=== PATIENT | male | born 1940 | race Caucasian/White ===

== ENCOUNTER 2016-10-21 21:17 | Inpatient (IN) | payer MEDICARE, OTHER ==
[2016-10-21] MEDS ORDERED: IPRATROPIUM/ALBUTEROL 0.5-2.5 MG/3 ML AMPUL NEB ONE (21:36)
[2016-10-21] MEDS ORDERED: METHYLPREDNISOLONE INJ 125 MG/2 ML SDV IV ONE (21:36)
--- NOTE | 2016-10-21 21:39 | ER Document Report ---
ED General - General Stated Complaint: RESPIRATORY DISTRESS Cannot obtain history due to: Unstable vital signs Notes: Patient is a 76-year-old male with complex medical history including systolic CHF with an ejection fraction below 30% status post placement of an AICD and pacemaker, chronic kidney disease, COPD with a 4 L nasal cannula oxygen requirement, and a history of recurrent pleural effusions who presents with hypoxemia and respiratory distress. History is limited secondary to patient's distress level. However, the daughter and EMS provide a history of patient contacting the daughter stating he felt increasingly short of breath. When the daughter arrived patient was tachypneic and she checked a pulse oximeter and noted it to be 50%. She noticed that his oxygen tubing was kinked but even unkinking the tubing only increases oxygen saturation to 73%. On EMS arrival, patient was in severe respiratory distress with associated wheezing and poor air movement bilaterally. He was placed on CPAP with moderate improvement of his symptoms and transferred to the emergency department. Daughter does note that patient fell 2 days ago and hit his head but has not been acting any differently has not had any focal weakness, numbness or vomiting since that time. He is currently anticoagulated on Coumadin. - Related Data Allergies/Adverse Reactions: acetaminophen [From Percocet] Allergy (Severe, Verified 10/22/16 00:35) Hallucinations oxycodone HCl [From Percocet] Allergy (Severe, Verified 10/22/16 00:35) Hallucinations Penicillins Allergy (Severe, Verified 10/22/16 00:35) Sulfa (Sulfonamide Antibiotics) Allergy (Verified 10/22/16 00:35) Home Medications: Current Home Medications Aclidinium [place] [Tudorza Pressair for Inh] 1 puff IH PRN PRN 10/22/16 [ History] Bisoprolol Fumarate [Bisoprolol Fumarate] 0.5 tab PO DAILY 10/22/16 [History] Bumetanide [Bumetanide] 1 tab PO BID 10/22/16 [History] Febuxostat [Uloric 40 mg Tablet] 1 tab PO QAM 10/22/16 [History] Lubiprostone [Amitiza 24 Mcg Capsule] 1 tab PO BID 10/22/16 [History] Mometasone/Formoterol [Dulera 100 Mcg/5 Mcg Inhaler] 1 - 2 puff IH PRN PRN 10/22 [History] Ropinirole HCl [Ropinirole HCl] 1 tab PO QHS 10/22/16 [History] Sitagliptin Phosphate [Januvia] 50 mg PO DAILY 10/22/16 [History] Warfarin Sodium [Warfarin Sodium] 1 tab PO QPM 10/22/16 [History] Warfarin Sodium [Warfarin Sodium] 1 tab PO QPM 10/22/16 [History] Past Medical History - General Information source: Relative - Social History Smoking Status: Former Smoker Frequency of alcohol use: None Drug Abuse: None Lives with: Alone Family History: Reviewed & Not Pertinent - Past Medical History Cardiac Medical History: Reports: Hx Congestive Heart Failure, Hx Heart Attack - 1990,2008, Hx Hypertension - LISINOPRIL ATENOLOL Pulmonary Medical History: Denies: Hx Asthma, Hx Bronchitis Neurological Medical History: Denies: Hx Cerebrovascular Accident, Hx Seizures GI Medical History: Denies: Hx Hepatitis, Hx Hiatal Hernia, Hx Ulcer Musculoskeltal Medical History: Reports Hx Arthritis Infectious Medical History: Denies: Hx Hepatitis Past Surgical History: Reports: Hx Open Heart Surgery - CABG X 2, Hx Pacemaker - MEDTRONIC [id number], left chest Review of Systems - Review of Systems Notes: Constitutional: Negative for fever. HENT: Negative for sore throat. Eyes: Negative for visual changes. Cardiovascular: Negative for chest pain. Respiratory: Positive for shortness of breath. Gastrointestinal: Negative for abdominal pain, vomiting or diarrhea. Genitourinary: Negative for dysuria. Musculoskeletal: Negative for back pain. Skin: Negative for rash. Neurological: Negative for headaches, weakness or numbness. 10 point ROS negative except as marked above and in HPI. Physical Exam - Vital signs Vitals: Temp Resp Pulse Ox 98.4 F 30 H 95 10/21/16 21:20 10/21/16 21:20 10/21/16 21:20 Interpretation: Hypoxic, Tachypneic Notes: PHYSICAL EXAMINATION: GENERAL: Frail, elderly-appearing male in severe respiratory distress HEAD: Atraumatic, normocephalic. EYES: Pupils equal round and reactive to light, extraocular movements intact, sclera anicteric, conjunctiva are normal. ENT: nares patent, oropharynx clear without exudates. Dry mucous membranes. NECK: Normal range of motion, supple without lymphadenopathy LUNGS: Tight air movement in all lung aparicio. Diminished breath sounds at the left base. Expiratory wheezing in all lung aparicio. Moderate to severe respiratory distress tachypnea with respiratory rate of 42. HEART: Regular rate and rhythm without murmurs ABDOMEN: Soft, nontender, normoactive bowel sounds. No guarding, no rebound. No masses appreciated. EXTREMITIES: Normal range of motion, no pitting or edema. No cyanosis. 1+ pitting edema in the bilateral lower extremities that is equal and symmetric NEUROLOGICAL: No focal neurological deficits. Moves all extremities spontaneously and on command. PSYCH: Normal mood, normal affect. SKIN: Warm, Dry, normal turgor, no rashes or lesions noted. Course - Re-evaluation Re-evalutation: 10/21/16 21:37 Patient arrives in severe respiratory distress, tachypneic into the low 40s, poor air movement bilaterally particular diminished at the left lobe base which family states his baseline apparently. Patient did have significant improvement of his distress after being placed on BiPAP. His presentation is most consistent with an acute COPD exacerbation as opposed to a CHF exacerbation as he does not have any significant pedal edema and I do not appreciate any significant rales on exam. He was started on continuous in-line DuoNeb's. IV Solu-Medrol and magnesium were administered. A stat portal chest x-ray will be obtained. Patient also apparently had a fall 2 days ago and is on Coumadin so CT the head will be obtained will be does not have any symptoms at this time of a clinically significant brain injury. Patient will require frequent reassessments as he is critically ill this time secondary to his respiratory status. 10/21/16 2200 On reassessment patient's work of breathing is much improved and air movement likewise is substantially improved. Portable chest x-ray shows likely large bleb at the right lower lung base. There is a left pleural effusion which is consistent with clinical exam and patient does have a chronic history of this. Patient states he's also been told that he has "something that's always been at my right lower lung". Will continue on BiPAP at this time although patient is much clinically improved relative to presentation 10/21/16 23:35 Patient has now been transitioned to 6 L by nasal cannula and maintained an oxygen saturation between 90-93%. This is 2 L more than he normally requires only continues without respiratory distress. Review his laboratories show some chronic kidney disease. ProBNP is elevated although do not have a comparison to determine his baseline. Troponin is negative. CBC of seizures and mild anemia and leukocytosis. I discussed this case with the hospitalist Dr. Stratton who has accepted for admission at this time. - Vital Signs Vital signs: Temp Pulse Resp BP Pulse Ox 98.2 F 70 23 H 115/71 93 10/22/16 01:50 10/22/16 01:50 10/22/16 01:50 10/22/16 01:50 10/22/16 01:50 - Laboratory Result Diagrams: 10/21/16 21:46 10/21/16 21:46 Laboratory results interpreted by me: 10/21/16 10/21/16 10/21/16 21:46 21:46 21:46 WBC 12.6 H RBC 4.26 L Hgb 12.6 L RDW 16.1 H Seg Neuts % (Manual) 87 H Band Neutrophils % 1 L Lymphocytes % (Manual) 7 L Abs Neuts (Manual) 11.1 H Abs Basophils (Manual) 0.3 H PT ABG pO2 BUN 28 H Creatinine 1.47 H Est GFR ( Amer) 56 L Est GFR (Non-Af Amer) 46 L Glucose 123 H Total Bilirubin 1.5 H Creatine Kinase 52 L NT-Pro-B Natriuret Pep 4730 H 10/21/16 10/22/16 21:46 00:05 WBC RBC Hgb RDW Seg Neuts % (Manual) Band Neutrophils % Lymphocytes % (Manual) Abs Neuts (Manual) Abs Basophils (Manual) PT 22.4 H ABG pO2 74.9 L BUN Creatinine Est GFR ( Amer) Est GFR (Non-Af Amer) Glucose Total Bilirubin Creatine Kinase NT-Pro-B Natriuret Pep - Diagnostic Test Radiology reviewed: Image reviewed, Reports reviewed Radiology results interpreted by me: 10/21/16 23:42 Chest x-ray: Left pleural effusion and likely large air bleb at the right lung base - EKG Interpretation by Me Additional EKG results interpreted by me: 10/22/16 02:13 Left bundle branch block. Rate 64. QTC is 446. Sinus rhythm. No scarbosa criteria Critical Care Note - Critical Care Note Total time excluding time spent on procedures (mins): 45 Comments: Critical care time spent obtaining history from patient or surrogate, discussions with consultants, development of treatment plan with patient or surrogate, evaluation of patient's response to treatment, examination of patient , ordering and performing treatments and interventions, ordering and review of laboratory studies, re-evaluation of patient's condition, ordering and review of radiographic studies and review of old charts Discharge - Discharge Clinical Impression: Respiratory distress, COPD exacerbation Chronic kidney disease Qualifiers: Chronic kidney disease stage: unspecified stage Qualified Code(s): N18.9 - Chronic kidney disease, unspecified Condition: Fair Disposition: ADMITTED INPATIENT Admitting Provider: Pablo Frankwell Unit Admitted: [facility]
--- NOTE | 2016-10-21 21:40 | EKG REPORT ---
SEVERITY:- ABNORMAL ECG - PROBABLE SINUS RHYTHM LEFT BUNDLE BRANCH BLOCK : Confirmed by: Kevin Eldridge 21-Oct-2016 21:39:19
[2016-10-21] MEDS: MAGNESIUM SULFATE/D5W 100 ML IV SCH ×2 (21:54→22:54)
[2016-10-21 22:05] LABS: HEMOGLOBIN 12.6 g/dL (13.5-17.0); HGB HCT DIFFERENCE -1.2; MEAN CORPUSCULAR HEMOGLOBIN 29.6 pg (27.0-33.4); MEAN CORPUSCULAR HGB CONC 32.3 g/dL (32.0-36.0); MEAN CORPUSCULAR VOLUME 92 fl (80-97); RED BLOOD COUNT 4.26 10^6/uL (4.35-5.55); RED CELL DISTRIBUTION WIDTH 16.1 % (11.5-14.0); WHITE BLOOD COUNT 12.6 10^3/uL (4.0-10.5)
[2016-10-21 22:11] LABS: PROTHROMBIN TIME 22.4 SEC (11.4-15.4)
[2016-10-21 22:12] LABS: PARTIAL THROMBOPLASTIN TIME 34.5 SEC (23.5-35.8)
[2016-10-21 22:25] LABS: ALANINE AMINOTRANSFERASE 30 U/L (21-72); ALBUMIN 3.9 g/dL (3.5-5.0); ALKALINE PHOSPHATASE 84 U/L (38-126); ANION GAP 11 (5-19); ASPARTATE AMINO TRANSFERASE 20 U/L (17-59); BILIRUBIN,TOTAL 1.5 mg/dL (0.2-1.3); BLOOD UREA NITROGEN 28 mg/dL (7-20); CALCIUM 9.6 mg/dL (8.4-10.2); CARBON DIOXIDE 27 mmol/L (22-30); CHLORIDE 102 mmol/L (98-107); CREATINE KINASE 52 U/L (55-170); CREATININE RESULT 1.47 mg/dL (0.52-1.25); GLUCOSE 123 mg/dL (75-110); POTASSIUM 4.5 mmol/L (3.6-5.0); SODIUM 140.1 mmol/L (137-145); TOTAL PROTEIN 7.2 g/dL (6.3-8.2)
[2016-10-21 22:30] LABS: ANISOCYTOSIS 1+; BAND NEUTROPHILS % (MANUAL) 1 % (3-5); BASOPHILS % (MANUAL) 2 % (0-2); EOSINOPHILS % (MANUAL) 0 % (0-6); LYMPHOCYTES % (MANUAL) 7 % (13-45); OVALOCYTES 1+; PLATELET CLUMPS PRESENT; POIKILOCYTOSIS SLIGHT; POLYCHROMASIA SLIGHT; TOTAL CELLS COUNTED 100
[2016-10-21 22:37] LABS: CREATINE KINASE MB 0.9 ng/mL (<4.55); TROPONIN I 0.015 ng/mL
[2016-10-22 00:14] LABS: ARTERIAL BLOOD BASE EXCESS 0.4 mmol/L; ARTERIAL BLOOD O2 SATURATION 95.4 % (94-98)
[2016-10-22] MEDS ORDERED: INFLUENZA ADLT QUAD (36MOS+) 2016-17 VAC 0.5 ML SYR IM PRN (03:45)
[2016-10-22] MEDS ORDERED: GUAIFENESIN SYRP 200 MG/10 ML UDC PO PRN (04:25)
[2016-10-22] MEDS ORDERED: ALBUTEROL SULFATE 0.083% NEB 2.5 MG/3 ML AMPUL NEB PRN (04:25)
[2016-10-22] MEDS ORDERED: ACETAMINOPHEN 325 MG TABLET PO PRN (04:25)
[2016-10-22] MEDS ORDERED: DEXTROSE 40% GEL 15 GM TUBE PO PRN ×2 (04:27)
[2016-10-22] MEDS ORDERED: GLUCAGON,HUMAN RECOMB 1 MG INJ IM PRN (04:27)
[2016-10-22] MEDS ORDERED: DEXTROSE 50%-WATER 25 GM/50 ML DISP.SYRIN IV PRN ×2 (04:27)
[2016-10-22] MEDS ORDERED: PHARMACY COMMUNICATION ORDER MC NR (04:30)
--- NOTE | 2016-10-22 04:47 | PDOC H&P ---
History of Present Illness Admission Date/PCP: 10/22/16 00:16 Pennie Gamez, [place], [place] Patient complains of: DIFFICULTY BREATHING History of Present Illness: JUANY BOWLES is a 76 year old obese male with underlying home O2 dependent COPD, along with coronary artery disease, having suffered [place] 2, congestive heart failure, uncertain if systolic and/or diastolic, history of DVT but no pulmonary embolus, chronic anticoagulation with Coumadin, hyperlipidemia , hypertension, esophageal reflux disease, arthritis, and chronic kidney disease who presents to the emergency room for evaluation of above complaint. Chronic shortness of breath, but particularly noticeable over the past week, in particular with much of any exertion. Questionable chills, but no jacqueline fever. No nausea vomiting, chest pain, diarrhea or dysuria. Was noted to be hypoxic at home even on supplemental oxygen, 73% upon EMS arrival. noted to be in severe respiratory distress with wheezing and poor air movement. Placed on CPAP. Transitioned to BiPAP in the emergency room. Has improved significantly with treatment so far, is currently tolerating nasal cannula oxygen only. Fell and struck his head 2 days ago. However, no change in his mentation, or focal weakness numbness or vomiting. Patient has been discussed with emergency room physician who evaluated the patient. . Laboratory results are listed in [facility] and are reviewed. X-ray summary results are listed below, with full report(s) reviewed. . EKG reviewed. No old EKG available for comparison. Social history/personal habits: . However, live separately from his . Retired. Has children. No tobacco use for 4 years. No alcohol or illicit drug use. Allergies/adverse reactions are listed in [facility] and are reviewed. Home medications Home medications initially autopopulated into [facility] may not accurately reflect patient's true medications, dosages, and/or frequencies. REVIEW OF SYSTEMS: Constitutional: See history and present illness. Eyes: Wears glasses. ENT: No swallowing problems or complaints. Partial hearing loss. Pulmonary: See history and present illness. Cardiovascular: No current complaints, including chest pain. Gastrointestinal: No current complaints, including nausea or vomiting. Skin: No current complaints, including rashes. Hematologic: Easy bruising. Neurologic: Chronic numbness and tingling of his feet. Musculoskeletal: Joint pain from arthritis. Psychiatric: No current complaints, including anxiety or depression. Endocrine: No current complaints, including polyuria. Genitourinary: No current complaints, including dysuria. PHYSICAL EXAMINATION: 6 feet tall. 119.2 kg. BMI 35.6 kg/m.Temperature 97.9. Blood pressure 115/ 61. Respirations are 20 and unlabored. 96% saturation on 5 L oxygen per nasal cannula. Obese otherwise well-developed elderly male appearing perhaps a bit younger than his stated age. Pleasant awake alert and cooperative. No obvious distress other than perhaps mildly anxious. Skin is warm and dry. No grossly obvious evidence of rash in areas of skin examined. No subcutaneous nodules palpated. ENT: Hearing grossly normal to normal conversation. Tongue midline on protrusion pink and slightly tacky. Eyes: No scleral icterus. Pupils equal and reactive to light at 4 mm. [place] conjunctivae. Neck is supple and nontender to gentle active range of motion and palpation. Midline trachea. No palpable thyroid nodule mass enlargement or tenderness. Lymphatic: No palpable cervical or clavicular nodes. Neck and lymphatic exams limited by patient body habitus. Psychiatric: Reasonable insight into acute and chronic medical issues. Oriented to time location and why here. Lungs: Auscultation reveals clear and equal breath sounds bilaterally. No use of accessory respiratory muscles. Cardiovascular: Heart regular rate and rhythm, without gallop murmur or rub. No carotid or abdominal aortic bruits. No ankle or pedal edema. Faintly palpable dorsalis pedis pulses. Abdomen: soft, obese, nontender with positive bowel sounds. Unable to adequately evaluate abdomen for masses or organomegaly due to body habitus. Extremities: Feet are warm and dry. No calf tenderness to compression. No grossly obvious visual evidence of calf swelling. Gentle manipulation of lower extremities fails to reveal any obvious evidence of injury or instability to knees hips or ankles. Neurologic: Moves upper extremities grossly normally. Patellar reflexes absent. Absent Babinski. Light touch is intact at feet. Dorsiflexion and plantarflexion of feet 5 / 5 and symmetric. Past Medical History Cardiac Medical History: Reports: Congestive Heart Failure, DVT, Myocardial Infarction - 1990,2007, Hyperlipidema, Hypertension Denies: Pulmonary Embolism Pulmonary Medical History: Reports: Chronic Obstructive Pulmonary Disease (COPD) Denies: Asthma, Bronchitis, Sleep Apnea EENT Medical History: Reports: Eyes - Glasses, Ears - Partial hearing loss Denies: Throat Neurological Medical History: Denies: Hemorrhagic CVA, Ischemic CVA, Seizures Endocrine Medical History: Reports: Diabetes Mellitus Type 2 Denies: Diabetes Mellitus Type 1, Hyperthyroidism, Hypothyroidism Renal/ Medical History: Reports: Chronic Kidney Disease Malignancy Medical History: Reports: Skin Cancer GI Medical History: Reports: Gastroesophageal Reflux Disease Denies: Cirrhosis, Hepatitis, Hiatal Hernia, Peptic Ulcer Disease Musculoskeltal Medical History: Reports: Arthritis Skin Medical History: Denies: Eczema, Psoriasis Psychiatric Medical History: Denies: Alcohol Dependency, Depression, General Anxiety Disorder, Substance Abuse, Tobacco Dependency Hematology: Reports: Other - Easy bruising Denies: Anemia, Sickle Cell Disease Infectious Medical History: Denies: Hepatitis B, Hepatitis C Past Surgical History Past Surgical History: Reports: Coronary Artery Bypass Graft, Pacemaker - AICD MEDTRONIC [id number], left chest Social History Information Source: Patient, Emergency Med Personnel, [facility] Records Lives with: Alone Smoking Status: Former Smoker Cigarettes Packs Per Day: 1 Number of Years Smokin Last Time Smoked: 2012 Frequency of Alcohol Use: None Hx Recreational Drug Use: No Drugs: None Hx Prescription Drug Abuse: No - Advance Directive Resuscitation Status: Full Code Surrogate healthcare decision maker:: His 2 daughters Family History Family History: Reviewed & Not Pertinent Parental Family History Reviewed: Yes Children Family History Reviewed: Yes Sibling(s) Family History Reviewed.: Yes Medication/Allergy Home Medications: RX: Aclidinium [place] [Tudorza Pressair] 400 mcg IH BID 10/22/16 RX: Aspirin [Aspirin EC] 81 mg PO DAILY 10/22/16 RX: Atorvastatin Calcium [Lipitor 40 mg Tablet] 40 mg PO QHS 10/22/16 RX: Bumetanide [Bumex 1 mg Tablet] 1 tab PO BID 10/22/16 RX: Colchicine [Colcrys 0.6 mg Tablet] 0.6 mg PO DAILY 10/22/16 RX: Febuxostat [Uloric 40 mg Tablet] 40 mg PO DAILY 10/22/16 RX: Ipratropium/Albuterol Sulfate [Duoneb 3 ml Ampul] 3 ml NEB QIDP PRN RX: Lisinopril [Prinivil 2.5 mg Tablet] 2.5 mg PO DAILY 10/22/16 RX: Lubiprostone [Amitiza 24 Mcg Capsule] 24 mcg PO BID 10/22/16 RX: Metolazone [Zaroxolyn 2.5 mg Tablet] 2.5 mg PO DAILYP PRN 10/22/16 RX: Metoprolol Tartrate [Lopressor 25 mg Tablet] 25 mg PO BID 10/22/16 RX: Nitroglycerin [Nitrostat] 0.4 mg SL Q5MP PRN 10/22/16 RX: Omeprazole 20 mg PO DAILY 10/22/16 RX: Potassium Chloride 20 meq PO DAILY 10/22/16 RX: Ropinirole HCl 1 mg PO QHS 10/22/16 RX: Sitagliptin Phosphate [Januvia 50 mg Tablet] 50 mg PO DAILY 10/22/16 RX: Spironolactone [Aldactone 25 mg Tablet] 12.5 mg PO DAILY 10/22/16 RX: Warfarin Sodium [Coumadin 1 mg Tablet] 1 mg PO DAILY 10/22/16 RX: Warfarin Sodium [Coumadin] 6 mg PO DAILY 10/22/16 Aclidinium [place] [Tudorza Pressair for Inh] 1 puff IH .PRN PRN 10/25/16 Bisoprolol Fumarate [Zebeta] 5 mg PO DAILY #10 tablet 10/25/16 RX: Acetaminophen [Tylenol 325 mg Tablet] 650 mg PO Q4HP PRN tablet 10/25/16 RX: Aspirin [Ecotrin 81 mg EC Tablet] 81 mg PO DAILY tabec 10/25/16 RX: Atorvastatin Calcium [Lipitor 40 mg Tablet] 40 mg PO QHS tablet 10/25/16 RX: Bumetanide [Bumex 1 mg Tablet] 1 mg PO BID tablet 10/25/16 RX: Febuxostat [Uloric 40 mg Tablet] 40 mg PO QAM tablet 10/25/16 RX: Flu Vacc [id number] 36Mos Up/Pf [Fluzone Adlt Quad [id number] Vac 0.5 ml Syr] 0.5 ml IM .AT DISCHARGE PRN disp.syrin 10/25/16 RX: Levofloxacin [Levaquin 750 mg Tablet] 750 mg PO DAILY #5 tablet 10/25/16 RX: Lubiprostone [Amitiza 24 Mcg Capsule] 24 mcg PO BID capsule 10/25/16 RX: Prednisone [Deltasone 20 mg Tablet] 20 mg PO ASDIR PRN #6 tablet 10/25/16 RX: Sitagliptin Phosphate [Januvia 50 mg Tablet] 50 mg PO DAILY tablet RX: Spironolactone [Aldactone 25 mg Tablet] 25 mg PO DAILY tablet 10/25/16 RX: Warfarin Sodium [Coumadin 3 mg Tablet] 6 mg PO QHS tablet 10/25/16 Allergies/Adverse Reactions: oxycodone HCl [From Percocet] Allergy (Severe, Verified 10/22/16 00:35) Hallucinations Penicillins Allergy (Severe, Verified 10/22/16 00:35) Sulfa (Sulfonamide Antibiotics) Allergy (Verified 10/22/16 00:35) Physical Exam Vital Signs: Temp Pulse Resp BP Pulse Ox 97.9 F 67 20 115/61 96 10/22/16 03:03 10/22/16 03:03 10/22/16 03:03 10/22/16 03:03 10/22/16 03:03 Intake & Output 10/21/16 10/22/16 10/23/16 00:59 00:59 00:59 Weight 119.2 kg Results Impressions: Chest X-Ray 10/21/16 21:18 IMPRESSION: CARDIOMEGALY WITH MODERATE LEFT PLEURAL EFFUSION. LUCENCY IN THE RIGHT LUNG BASE COULD BE DUE TO A LOCULATED PNEUMOTHORAX OR A LARGE BLEB. Head CT 10/21/16 21:35 IMPRESSION: NORMAL BRAIN CT WITHOUT CONTRAST. Assessment & Plan - Diagnosis (1) CKD (chronic kidney disease), stage III Is this a current diagnosis for this admission?: Yes (2) Diabetes mellitus type 2 in obese Is this a current diagnosis for this admission?: YesPlan: Cardiac diabetic prerenal diet. Accu-Cheks with appropriate sliding scale coverage. Resume home medications as appropriate once these have been determined and reviewed. (3) COPD exacerbation Is this a current diagnosis for this admission?: YesPlan: Patient will be admitted under COPD exacerbation protocol. Incentive spirometry twice a day. Scheduled DuoNeb's. PRN albuterol nebs daily prednisone. Prevacid for gastritis prophylaxis. Antibiotics will consist of intravenous Levaquin; pharmacy to assist with dosing.. I strongly encouraged patient to notify staff should patient feel that respiratory status is worsening. Patient is a full code. I have strongly encouraged patient not to get out of bed without notifying staff , , to avoid a fall with injury. Knee high SCDs for DVT prophylaxis; with patient on systemic anticoagulation, no need for Lovenox or heparin at this point in time. Impression and plans were discussed with patient, who concurs. Time spent in evaluation and management of patient: 62 minutes. (4) LBBB (left bundle branch block) Is this a current diagnosis for this admission?: YesPlan: No old EKG available for comparison. No clinical evidence of acute coronary syndrome; however, will repeat troponin.. (5) Abnormal chest xray Is this a current diagnosis for this admission?: YesPlan: Patient states he's been told there's "something" at his right lower lung for some time now. Uncertain about the left lung. Will obtain decubitus chest x- ray to see if there is any layering out of the left pleural effusion. - Inpatient Certification Based on my medical assessment, after consideration of the patient's comorbidities, presenting symptoms, or acuity I expect that the services needed warrant INPATIENT care.: Yes I certify that my determination is in accordance with my understanding of Medicare's requirements for reasonable and necessary INPATIENT services [42 CFR 412.3e].: Yes Medical Necessity: Significant Comorbidiites Make Outpatient Treatment Too Risky , Need Close Monitoring Due to Risk of Patient Decompensation, Need For Continuous Telemetry Monitoring, Need for Nebulizer Therapy and Monitoring of Response, Need for IV Antibiotics, Risk of Complication if Not Cared For in Hospital, Risk of Diagnosis Which Will Require Inpatient Eval/Care/Monitoring Post Hospital Care: D/C or Transfer Summary
[2016-10-22] MEDS ORDERED: LEVOFLOXACIN 750 MG/D5W RTU 750 MG/150 ML RTUPB IV ONE (05:00)
[2016-10-22 05:24] LABS: ANION GAP 11 (5-19); BLOOD UREA NITROGEN 30 mg/dL (7-20); CARBON DIOXIDE 23 mmol/L (22-30); CHLORIDE 103 mmol/L (98-107); CREATININE RESULT 1.52 mg/dL (0.52-1.25); GLUCOSE 280 mg/dL (75-110); POTASSIUM 3.6 mmol/L (3.6-5.0); SODIUM 136.9 mmol/L (137-145)
[2016-10-22 05:31] LABS: HEMATOCRIT 35.1 % (37.9-51.0); HEMOGLOBIN 11.7 g/dL (13.5-17.0); MEAN CORPUSCULAR HEMOGLOBIN 30.4 pg (27.0-33.4); MEAN CORPUSCULAR HGB CONC 33.3 g/dL (32.0-36.0); MEAN CORPUSCULAR VOLUME 91 fl (80-97); RED BLOOD COUNT 3.85 10^6/uL (4.35-5.55); RED CELL DISTRIBUTION WIDTH 15.8 % (11.5-14.0); WHITE BLOOD COUNT 9.1 10^3/uL (4.0-10.5)
[2016-10-22 05:56] LABS: BAND NEUTROPHILS % (MANUAL) 1 % (3-5); BASOPHILS % (MANUAL) 0 % (0-2); EOSINOPHILS % (MANUAL) 0 % (0-6); LYMPHOCYTES % (MANUAL) 3 % (13-45); TOTAL CELLS COUNTED 100
[2016-10-22 05:58] LABS: TOXIC GRANULATION SLIGHT
[2016-10-22 05:59] LABS: ANISOCYTOSIS SLIGHT; BURR CELLS SLIGHT; OVALOCYTES SLIGHT; POIKILOCYTOSIS SLIGHT; SCHISTOCYTES SLIGHT
[2016-10-22] MEDS ORDERED: ACLIDINIUM BROMIDE IH PRN (08:03)
[2016-10-22] MEDS: IPRATROPIUM/ALBUTEROL 0.5-2.5 MG/3 ML AMPUL NEB SCH ×3 (08:09→19:50)
[2016-10-22] MEDS ORDERED: SPIRONOLACTONE PO SCH (10:00)
[2016-10-22] MEDS ORDERED: BISOPROLOL FUMARATE PO SCH (10:00)
[2016-10-22] MEDS: ATENOLOL 50 MG TABLET PO SCH (10:09)
[2016-10-22] MEDS: SITAGLIPTIN PHOSPHATE 50 MG TABLET PO SCH (10:09)
[2016-10-22] MEDS: SPIRONOLACTONE 25 MG TABLET PO SCH (10:10)
[2016-10-22] MEDS: PREDNISONE 20 MG TABLET PO SCH (10:10)
[2016-10-22] MEDS: ASPIRIN 81 MG TABLET, ENT COATED PO SCH (10:10)
[2016-10-22] MEDS: LUBIPROSTONE 24 MCG CAPSULE PO SCH ×2 (10:12→18:39)
[2016-10-22] MEDS: BUMETANIDE 1 MG TABLET PO SCH ×2 (10:12→18:39)
--- NOTE | 2016-10-22 11:45 | PDOC PROGRESS REPORT ---
Subjective Progress Note for:: 10/22/16 Subjective:: Patient is seen on morning rounds, he is resting comfortably on the side of his bed. He denies any significant shortness breath, dyspnea, or chest pain. He denies any headaches, dizziness or lightheadedness. Denies nausea, vomiting or diarrhea. He states his breathing has improved from yesterday. He denies feeling ill prior to yesterday. Denies any cough or fever. Physical Exam Vital Signs: Temp Pulse Resp BP Pulse Ox 97.4 F 78 16 106/48 L 95 10/22/16 07:16 10/22/16 08:14 10/22/16 08:14 10/22/16 07:16 10/22/16 08:14 Intake & Output 10/21/16 10/22/16 10/23/16 06:59 06:59 06:59 Intake Total 200 Output Total 0 Balance 200 General appearance: PRESENT: no acute distress, well-developed, well-nourished Head exam: PRESENT: atraumatic, normocephalic Eye exam: PRESENT: conjunctiva pink, EOMI, PERRLA. ABSENT: scleral icterus Ear exam: PRESENT: normal external ear exam Mouth exam: PRESENT: moist, tongue midline Neck exam: ABSENT: carotid bruit, JVD, lymphadenopathy, thyromegaly Respiratory exam: PRESENT: clear to auscultation cole. ABSENT: rales, rhonchi, wheezes Cardiovascular exam: PRESENT: RRR. ABSENT: diastolic murmur, rubs, systolic murmur Pulses: PRESENT: normal dorsalis pedis pul Vascular exam: PRESENT: normal capillary refill GI/Abdominal exam: PRESENT: normal bowel sounds, soft. ABSENT: distended, guarding, mass, organolmegaly, rebound, tenderness Rectal exam: PRESENT: deferred Extremities exam: PRESENT: full ROM. ABSENT: calf tenderness, clubbing, pedal edema Neurological exam: PRESENT: alert, awake, oriented to person, oriented to place , oriented to time, oriented to situation, CN II-XII grossly intact. ABSENT: motor sensory deficit Psychiatric exam: PRESENT: appropriate affect, normal mood. ABSENT: homicidal ideation, suicidal ideation Skin exam: PRESENT: dry, intact, warm. ABSENT: cyanosis, rash Results Laboratory Results: 10/22/16 04:58 10/22/16 04:58 10/22/16 10/22/16 04:58 04:58 WBC 9.1 RBC 3.85 L Hgb 11.7 L Hct 35.1 L MCV 91 MCH 30.4 MCHC 33.3 RDW 15.8 H Plt Count 191 Seg Neutrophils % Not Reportable Lymphocytes % Not Reportable Monocytes % Not Reportable Eosinophils % Not Reportable Basophils % Not Reportable Absolute Neutrophils Not Reportable Absolute Lymphocytes Not Reportable Absolute Monocytes Not Reportable Absolute Eosinophils Not Reportable Absolute Basophils Not Reportable Sodium 136.9 L Potassium 3.6 Chloride 103 Carbon Dioxide 23 Anion Gap 11 BUN 30 H Creatinine 1.52 H Est GFR ( Amer) 54 L Est GFR (Non-Af Amer) 45 L Glucose 280 H Calcium 9.0 10/22/16 04:58 Troponin I 0.017 Impressions: Head CT 10/21/16 21:35 IMPRESSION: NORMAL BRAIN CT WITHOUT CONTRAST. Chest X-Ray 10/22/16 00:00 IMPRESSION: Trace FREE FLOWING LEFT PLEURAL EFFUSION. Probable bulla or bleb at the inferior right lung base Cardiomegaly with pulmonary vascular congestion, suspect left perihilar pulmonary edema Assessment & Plan - Diagnosis (1) Respiratory distress Is this a current diagnosis for this admission?: YesPlan: Patient presented with oxygen saturation in the 70s on nasal cannula, with tachypnea. He will required BiPAP to recover. He is now presently off BiPAP saturating well on nasal cannula. (2) COPD exacerbation Is this a current diagnosis for this admission?: YesPlan: Continue IV antibiotics, steroids and nebulizer treatment. Breathing much improved from admission. (3) LBBB (left bundle branch block) Is this a current diagnosis for this admission?: YesPlan: Patient with long cardiac history, EF 30% with AICD in place. He has had coronary bypass surgery 2. He normally is hospitalized and [place] he has no records at this facility. He denies any chest pain. His before meals DD has never fired. (4) Presence of automatic cardioverter/defibrillator (AICD) Is this a current diagnosis for this admission?: YesPlan: He has an EF of 30%. He has no history of ventricular tachycardia according to the patient. (5) Abnormal chest xray Is this a current diagnosis for this admission?: YesPlan: Lateral decubitus view shows a small left pleural effusion, large blebs in both bases. (6) Diabetes mellitus type 2 in obese Is this a current diagnosis for this admission?: YesPlan: Technique current medications and sliding scale coverage (7) Anticoagulated on Coumadin Is this a current diagnosis for this admission?: YesPlan: Patient has history of atrial fibrillation an EF of 30%. (8) Chronic kidney disease Qualifiers: Chronic kidney disease stage: unspecified stage Qualified Code(s): N18.9 - Chronic kidney disease, unspecified Is this a current diagnosis for this admission?: YesPlan: BUN/CR currently stable. Avoid nephrotoxic drugs and dosages (9) CAD (coronary artery disease) Qualifiers: Associated angina: without angina Is this a current diagnosis for this admission?: YesPlan: Continue current medications (10) History of DVT (deep vein thrombosis) Is this a current diagnosis for this admission?: YesPlan: Continue Coumadin (11) CKD (chronic kidney disease), stage III Is this a current diagnosis for this admission?: YesPlan: Currently stable (12) Oxygen dependent Is this a current diagnosis for this admission?: YesPlan: Wean to baseline oxygen requirements - Time Time Spent with patient: 25-34 minutes Critical Time spent with patient: 15-24 minutes Medications reviewed and adjusted accordingly: Yes
[2016-10-22] MEDS: INSULIN LISPRO 100 UNIT/ML 3 ML VIAL SUBCUT PRN ×3 (14:13→22:00)
--- NOTE | 2016-10-22 17:16 | EKG REPORT ---
SEVERITY:- ABNORMAL ECG - ATRIAL FIBRILLATION LEFT BUNDLE BRANCH BLOCK : Confirmed by: Kavitha Swenson MD 22-Oct-2016 17:15:24
[2016-10-22] MEDS: LANSOPRAZOLE 30 MG TAB.RAP.DR PO SCH (18:38)
[2016-10-22] MEDS: ATORVASTATIN CALCIUM 40 MG TABLET PO SCH (21:41)
[2016-10-22] MEDS: ROPINIROLE HCL 1 MG TABLET PO SCH (21:42)
[2016-10-22] MEDS: WARFARIN SODIUM 5 MG TABLET PO SCH (21:42)
[2016-10-22] MEDS: LEVOFLOXACIN 750 MG/D5W RTU 750 MG/150 ML RTUPB IV SCH (21:42)
[2016-10-23 05:13] LABS: PROTHROMBIN TIME 22.4 SEC (11.4-15.4)
[2016-10-23] MEDS: LANSOPRAZOLE 30 MG TAB.RAP.DR PO SCH ×2 (05:42→18:14)
[2016-10-23] MEDS: IPRATROPIUM/ALBUTEROL 0.5-2.5 MG/3 ML AMPUL NEB SCH ×3 (07:32→19:42)
[2016-10-23] MEDS: ASPIRIN 81 MG TABLET, ENT COATED PO SCH (09:56)
[2016-10-23] MEDS: PREDNISONE 20 MG TABLET PO SCH (09:56)
[2016-10-23] MEDS: SPIRONOLACTONE 25 MG TABLET PO SCH (09:56)
[2016-10-23] MEDS: SITAGLIPTIN PHOSPHATE 50 MG TABLET PO SCH (09:56)
[2016-10-23] MEDS: ATENOLOL 50 MG TABLET PO SCH (09:56)
[2016-10-23] MEDS: BUMETANIDE 1 MG TABLET PO SCH ×2 (09:58→18:14)
[2016-10-23] MEDS: FEBUXOSTAT 40 MG TABLET PO SCH (09:59)
[2016-10-23] MEDS: LUBIPROSTONE 24 MCG CAPSULE PO SCH ×2 (09:59→18:15)
[2016-10-23] MEDS: INSULIN LISPRO 100 UNIT/ML 3 ML VIAL SUBCUT PRN ×3 (14:19→22:02)
--- NOTE | 2016-10-23 15:44 | PDOC PROGRESS REPORT ---
Subjective Progress Note for:: 10/23/16 Subjective:: Patient is seen on morning rounds, he is resting comfortably on the side of his bed. He denies any significant shortness breath, dyspnea, or chest pain. He denies any headaches, dizziness or lightheadedness. Denies nausea, vomiting or diarrhea. He states his breathing has improved from yesterday. He denies feeling ill prior to yesterday. Denies any cough or fever. Physical Exam Vital Signs: Temp Pulse Resp BP Pulse Ox 97.3 F 72 18 120/64 98 10/23/16 11:44 10/23/16 14:15 10/23/16 14:15 10/23/16 11:44 10/23/16 14:15 Intake & Output 10/22/16 10/23/16 10/24/16 06:59 06:59 06:59 Intake Total 200 1250 Output Total 0 1475 Balance 200 -225 Weight 120.9 kg General appearance: PRESENT: no acute distress, well-developed, well-nourished Head exam: PRESENT: atraumatic, normocephalic Eye exam: PRESENT: conjunctiva pink, EOMI, PERRLA. ABSENT: scleral icterus Ear exam: PRESENT: normal external ear exam Mouth exam: PRESENT: moist, tongue midline Neck exam: ABSENT: carotid bruit, JVD, lymphadenopathy, thyromegaly Respiratory exam: PRESENT: clear to auscultation cole, decreased breath sounds. ABSENT: rales, rhonchi, wheezes Cardiovascular exam: PRESENT: RRR. ABSENT: diastolic murmur, rubs, systolic murmur Pulses: PRESENT: normal dorsalis pedis pul GI/Abdominal exam: PRESENT: normal bowel sounds, soft. ABSENT: distended, guarding, mass, organolmegaly, rebound, tenderness Rectal exam: PRESENT: deferred Extremities exam: PRESENT: full ROM. ABSENT: calf tenderness, clubbing, pedal edema Neurological exam: PRESENT: alert, awake, oriented to person, oriented to place , oriented to time, oriented to situation, CN II-XII grossly intact. ABSENT: motor sensory deficit Psychiatric exam: PRESENT: appropriate affect, normal mood. ABSENT: homicidal ideation, suicidal ideation Skin exam: PRESENT: dry, intact, warm. ABSENT: cyanosis, rash Results Laboratory Results: 10/22/16 04:58 10/22/16 04:58 10/22/16 04:58 Troponin I 0.017 Impressions: Head CT 10/21/16 21:35 IMPRESSION: NORMAL BRAIN CT WITHOUT CONTRAST. Chest X-Ray 10/22/16 00:00 IMPRESSION: Trace FREE FLOWING LEFT PLEURAL EFFUSION. Probable bulla or bleb at the inferior right lung base Cardiomegaly with pulmonary vascular congestion, suspect left perihilar pulmonary edema Assessment & Plan - Diagnosis (1) Respiratory distress Is this a current diagnosis for this admission?: YesPlan: Patient presented with oxygen saturation in the 70s on nasal cannula, with tachypnea. He will required BiPAP to recover. He is now presently off BiPAP saturating well on nasal cannula. (2) COPD exacerbation Is this a current diagnosis for this admission?: YesPlan: Continue IV antibiotics, steroids and nebulizer treatment. Breathing much improved from admission. (3) LBBB (left bundle branch block) Is this a current diagnosis for this admission?: YesPlan: Patient with long cardiac history, EF 30% with AICD in place. He has had coronary bypass surgery 2. He normally is hospitalized and [place] he has no records at this facility. He denies any chest pain. His before meals DD has never fired. (4) Presence of automatic cardioverter/defibrillator (AICD) Is this a current diagnosis for this admission?: YesPlan: He has an EF of 30%. He has no history of ventricular tachycardia according to the patient. (5) Abnormal chest xray Is this a current diagnosis for this admission?: YesPlan: Lateral decubitus view shows a small left pleural effusion, large blebs in both bases. (6) Diabetes mellitus type 2 in obese Is this a current diagnosis for this admission?: YesPlan: Technique current medications and sliding scale coverage (7) Anticoagulated on Coumadin Is this a current diagnosis for this admission?: YesPlan: Patient has history of atrial fibrillation an EF of 30%. (8) Chronic kidney disease Qualifiers: Chronic kidney disease stage: unspecified stage Qualified Code(s): N18.9 - Chronic kidney disease, unspecified Is this a current diagnosis for this admission?: YesPlan: BUN/CR currently stable. Avoid nephrotoxic drugs and dosages (9) CAD (coronary artery disease) Qualifiers: Associated angina: without angina Is this a current diagnosis for this admission?: YesPlan: Continue current medications (10) History of DVT (deep vein thrombosis) Is this a current diagnosis for this admission?: YesPlan: Continue Coumadin (11) CKD (chronic kidney disease), stage III Is this a current diagnosis for this admission?: YesPlan: Currently stable (12) Oxygen dependent Is this a current diagnosis for this admission?: YesPlan: Wean to baseline oxygen requirements (13) Acute respiratory failure with hypoxemia Is this a current diagnosis for this admission?: YesPlan: Patient presented to the ER [facility] with oxygen saturation 70% on 4 L nasal cannula. He required BiPAP therapy to recover. He has been wearing oxygen at 4 L/m at home for the last 2 years. His improved with nebulizers, antibiotics and steroids. He is now an oxygen saturation of 97% on 4 L/m today - Time Time Spent with patient: 25-34 minutes Critical Time spent with patient: 15-24 minutes Medications reviewed and adjusted accordingly: Yes Anticipated discharge: Home with Homehealth
[2016-10-23] MEDS: WARFARIN SODIUM 5 MG TABLET PO SCH (21:50)
[2016-10-23] MEDS: ATORVASTATIN CALCIUM 40 MG TABLET PO SCH (21:50)
[2016-10-23] MEDS: LEVOFLOXACIN 750 MG/D5W RTU 750 MG/150 ML RTUPB IV SCH (21:51)
[2016-10-23] MEDS: ROPINIROLE HCL 1 MG TABLET PO SCH (21:52)
[2016-10-24 05:04] LABS: PROTHROMBIN TIME 20.7 SEC (11.4-15.4)
[2016-10-24 05:05] LABS: ABSOLUTE MONOCYTES (AUTO) 0.9 10^3/uL (0.1-1.4); ABSOLUTE NEUT (AUTO) 13.6 10^3/uL (1.7-8.2); BASOPHILS % (AUTO) 0.2 % (0-2); EOSINOPHILS % (AUTO) 0.1 % (0-6); HEMATOCRIT 36.2 % (37.9-51.0); HEMOGLOBIN 11.9 g/dL (13.5-17.0); HGB HCT DIFFERENCE -0.5; LYMPHOCYTES % (AUTO) 6.5 % (13-45); MEAN CORPUSCULAR HEMOGLOBIN 29.7 pg (27.0-33.4); MEAN CORPUSCULAR VOLUME 90 fl (80-97); MONOCYTES % (AUTO) 5.8 % (3-13); RED BLOOD COUNT 4.03 10^6/uL (4.35-5.55); RED CELL DISTRIBUTION WIDTH 15.8 % (11.5-14.0); SEGMENTED NEUTROPHILS % (AUTO) 87.4 % (42-78); WHITE BLOOD COUNT 15.6 10^3/uL (4.0-10.5)
[2016-10-24 05:24] LABS: ANION GAP 12 (5-19); BLOOD UREA NITROGEN 35 mg/dL (7-20); CALCIUM 10.1 mg/dL (8.4-10.2); CARBON DIOXIDE 25 mmol/L (22-30); CHLORIDE 101 mmol/L (98-107); CREATININE RESULT 1.59 mg/dL (0.52-1.25); GLUCOSE 226 mg/dL (75-110); POTASSIUM 4.6 mmol/L (3.6-5.0)
[2016-10-24] MEDS: LANSOPRAZOLE 30 MG TAB.RAP.DR PO SCH ×2 (05:34→17:28)
[2016-10-24] MEDS: IPRATROPIUM/ALBUTEROL 0.5-2.5 MG/3 ML AMPUL NEB SCH ×3 (07:54→19:54)
--- NOTE | 2016-10-24 08:20 | PDOC PROGRESS REPORT ---
Subjective Progress Note for:: 10/24/16 Subjective:: Patient is seen on morning rounds, he is resting comfortably on the side of his bed. He denies any significant shortness breath, dyspnea, or chest pain. He denies any headaches, dizziness or lightheadedness. Denies nausea, vomiting or diarrhea. He states his breathing has improved from yesterday. He denies feeling ill prior to yesterday. Denies any cough or fever. Physical Exam Vital Signs: Temp Pulse Resp BP Pulse Ox 97.4 F 59 L 16 147/70 H 96 10/24/16 04:08 10/24/16 07:00 10/24/16 04:08 10/24/16 04:08 10/24/16 04:42 Intake & Output 10/23/16 10/24/16 10/25/16 06:59 06:59 06:59 Intake Total 1250 1680 Output Total 1475 350 Balance -225 1330 Weight 120.9 kg 121.7 kg General appearance: PRESENT: no acute distress, obese, well-developed, well- nourished Head exam: PRESENT: atraumatic, normocephalic Eye exam: PRESENT: conjunctiva pink, EOMI, PERRLA. ABSENT: scleral icterus Ear exam: PRESENT: normal external ear exam Mouth exam: PRESENT: moist, tongue midline Neck exam: ABSENT: carotid bruit, JVD, lymphadenopathy, thyromegaly Respiratory exam: PRESENT: clear to auscultation cole, decreased breath sounds, symmetrical, unlabored Cardiovascular exam: PRESENT: irregular rhythm. ABSENT: diastolic murmur, rubs , systolic murmur Pulses: PRESENT: normal dorsalis pedis pul Vascular exam: PRESENT: normal capillary refill GI/Abdominal exam: PRESENT: normal bowel sounds, soft. ABSENT: distended, guarding, mass, organolmegaly, rebound, tenderness Rectal exam: PRESENT: deferred Extremities exam: PRESENT: full ROM. ABSENT: calf tenderness, clubbing, pedal edema Neurological exam: PRESENT: alert, awake, oriented to person, oriented to place , oriented to time, oriented to situation, CN II-XII grossly intact. ABSENT: motor sensory deficit Psychiatric exam: PRESENT: appropriate affect, normal mood. ABSENT: homicidal ideation, suicidal ideation Skin exam: PRESENT: dry, intact, warm. ABSENT: cyanosis, rash Results Laboratory Results: 10/24/16 04:02 10/24/16 04:02 10/24/16 10/24/16 04:02 04:02 WBC 15.6 H RBC 4.03 L Hgb 11.9 L Hct 36.2 L MCV 90 MCH 29.7 MCHC 33.0 RDW 15.8 H Plt Count 213 Seg Neutrophils % 87.4 H Lymphocytes % 6.5 L Monocytes % 5.8 Eosinophils % 0.1 Basophils % 0.2 Absolute Neutrophils 13.6 H Absolute Lymphocytes 1.0 Absolute Monocytes 0.9 Absolute Eosinophils 0.0 Absolute Basophils 0.0 Sodium 138.0 Potassium 4.6 Chloride 101 Carbon Dioxide 25 Anion Gap 12 BUN 35 H Creatinine 1.59 H Est GFR ( Amer) 51 L Est GFR (Non-Af Amer) 42 L Glucose 226 H Calcium 10.1 10/22/16 04:58 Troponin I 0.017 Impressions: Head CT 10/21/16 21:35 IMPRESSION: NORMAL BRAIN CT WITHOUT CONTRAST. Chest X-Ray 10/22/16 00:00 IMPRESSION: Trace FREE FLOWING LEFT PLEURAL EFFUSION. Probable bulla or bleb at the inferior right lung base Cardiomegaly with pulmonary vascular congestion, suspect left perihilar pulmonary edema Assessment & Plan - Diagnosis (1) Respiratory distress Is this a current diagnosis for this admission?: YesPlan: Patient presented with oxygen saturation in the 70s on nasal cannula, with tachypnea. He will required BiPAP to recover. He is now presently off BiPAP saturating well on nasal cannula. His cough has improved. No longer dyspneic with minimal exertion (2) COPD exacerbation Is this a current diagnosis for this admission?: YesPlan: Continue IV antibiotics, steroids and nebulizer treatment. Breathing much improved from admission. (3) LBBB (left bundle branch block) Is this a current diagnosis for this admission?: YesPlan: Patient with long cardiac history, EF 30% with AICD in place. He has had coronary bypass surgery 2. He normally is hospitalized and [place] he has no records at this facility. He denies any chest pain. His before meals DD has never fired. (4) Presence of automatic cardioverter/defibrillator (AICD) Is this a current diagnosis for this admission?: YesPlan: He has an EF of 30%. He has no history of ventricular tachycardia according to the patient. (5) Abnormal chest xray Is this a current diagnosis for this admission?: YesPlan: Lateral decubitus view shows a small left pleural effusion, large blebs in both bases. (6) Diabetes mellitus type 2 in obese Is this a current diagnosis for this admission?: YesPlan: Technique current medications and sliding scale coverage (7) Anticoagulated on Coumadin Is this a current diagnosis for this admission?: YesPlan: Patient has history of atrial fibrillation an EF of 30%. (8) Chronic kidney disease Qualifiers: Chronic kidney disease stage: unspecified stage Qualified Code(s): N18.9 - Chronic kidney disease, unspecified Is this a current diagnosis for this admission?: YesPlan: BUN/CR currently stable. Avoid nephrotoxic drugs and dosages (9) CAD (coronary artery disease) Qualifiers: Associated angina: without angina Is this a current diagnosis for this admission?: YesPlan: Continue current medications (10) History of DVT (deep vein thrombosis) Is this a current diagnosis for this admission?: YesPlan: Continue Coumadin (11) CKD (chronic kidney disease), stage III Is this a current diagnosis for this admission?: YesPlan: Currently stable (12) Oxygen dependent Is this a current diagnosis for this admission?: YesPlan: Wean to baseline oxygen requirements (13) Acute respiratory failure with hypoxemia Is this a current diagnosis for this admission?: YesPlan: Patient presented to the ER [facility] with oxygen saturation 70% on 4 L nasal cannula. He required BiPAP therapy to recover. He has been wearing oxygen at 4 L/m at home for the last 2 years. His improved with nebulizers, antibiotics and steroids. He is now an oxygen saturation of 97% on 4 L/m today - Time Time Spent with patient: 25-34 minutes Critical Time spent with patient: 15-24 minutes Medications reviewed and adjusted accordingly: Yes Anticipated discharge: Home with Homehealth Within: within 24 hours
[2016-10-24] MEDS: SPIRONOLACTONE 25 MG TABLET PO SCH (10:52)
[2016-10-24] MEDS: LEVOFLOXACIN 750 MG TABLET PO SCH (10:52)
[2016-10-24] MEDS: ASPIRIN 81 MG TABLET, ENT COATED PO SCH (10:52)
[2016-10-24] MEDS: SITAGLIPTIN PHOSPHATE 50 MG TABLET PO SCH (10:52)
[2016-10-24] MEDS: ATENOLOL 50 MG TABLET PO SCH (10:52)
[2016-10-24] MEDS: PREDNISONE 20 MG TABLET PO SCH (10:52)
[2016-10-24] MEDS: LUBIPROSTONE 24 MCG CAPSULE PO SCH ×2 (10:53→17:31)
[2016-10-24] MEDS: BUMETANIDE 1 MG TABLET PO SCH ×2 (10:53→17:31)
[2016-10-24] MEDS: FEBUXOSTAT 40 MG TABLET PO SCH (10:53)
[2016-10-24] MEDS: INSULIN LISPRO 100 UNIT/ML 3 ML VIAL SUBCUT PRN ×2 (17:29→21:33)
[2016-10-24] MEDS: ATORVASTATIN CALCIUM 40 MG TABLET PO SCH (21:30)
[2016-10-24] MEDS: ROPINIROLE HCL 1 MG TABLET PO SCH (21:30)
[2016-10-24] MEDS ORDERED: WARFARIN SODIUM 3 MG TABLET PO SCH (22:00)
[2016-10-25 04:52] LABS: PROTHROMBIN TIME 20.7 SEC (11.4-15.4)
[2016-10-25] MEDS: LANSOPRAZOLE 30 MG TAB.RAP.DR PO SCH (06:54)
[2016-10-25] MEDS: IPRATROPIUM/ALBUTEROL 0.5-2.5 MG/3 ML AMPUL NEB SCH ×2 (07:38→13:14)
[2016-10-25] MEDS: FEBUXOSTAT 40 MG TABLET PO SCH (09:30)
[2016-10-25] MEDS: ATENOLOL 50 MG TABLET PO SCH (09:31)
[2016-10-25] MEDS: ASPIRIN 81 MG TABLET, ENT COATED PO SCH (09:31)
[2016-10-25] MEDS: SPIRONOLACTONE 25 MG TABLET PO SCH (09:31)
[2016-10-25] MEDS: BUMETANIDE 1 MG TABLET PO SCH (09:32)
[2016-10-25] MEDS: SITAGLIPTIN PHOSPHATE 50 MG TABLET PO SCH (09:32)
[2016-10-25] MEDS: LEVOFLOXACIN 750 MG TABLET PO SCH (09:32)
[2016-10-25] MEDS: LUBIPROSTONE 24 MCG CAPSULE PO SCH (09:33)
[2016-10-25] MEDS ORDERED: PREDNISONE 20 MG TABLET PO SCH (10:00)
[2016-10-25] MEDS: INSULIN LISPRO 100 UNIT/ML 3 ML VIAL SUBCUT PRN (12:19)
[2016-10-25 12:20] VITALS: BP 125/67
--- NOTE | 2016-10-25 16:05 | PDOC DISCHARGE SUMMARY ---
General - Admit/Disc Date/PCP Admission Date/Primary Care Provider: 10/22/16 04:25 Discharge Date: 10/25/16 - Discharge Diagnosis (1) Respiratory distress Is this a current diagnosis for this admission?: YesSummary: Resolved. Patient is back to baseline oxygen requirements of 2-4 L/m by nasal cannula (2) COPD exacerbation Is this a current diagnosis for this admission?: YesSummary: Resolved continue current medications and inhalers. He'll be given Levaquin daily for the next 5 days and tapering prednisone. (3) LBBB (left bundle branch block) Is this a current diagnosis for this admission?: YesSummary: Chronic compared to prior EKGs (4) Presence of automatic cardioverter/defibrillator (AICD) Is this a current diagnosis for this admission?: YesSummary: Continue current medications. Follow-up with his senior tax analyst in [place] as needed. (5) Abnormal chest xray Is this a current diagnosis for this admission?: YesSummary: Patient has chronic right pleural effusion. (6) Diabetes mellitus type 2 in obese Is this a current diagnosis for this admission?: YesSummary: Continue current medication (7) Anticoagulated on Coumadin Is this a current diagnosis for this admission?: YesSummary: Continue current Coumadin dosage follow-up with primary care provider. (8) Chronic kidney disease Is this a current diagnosis for this admission?: YesSummary: BUN/creatinine creatinine are stable. (9) CAD (coronary artery disease) Is this a current diagnosis for this admission?: YesSummary: Continue current medications (10) History of DVT (deep vein thrombosis) Is this a current diagnosis for this admission?: YesSummary: Continue warfarin at current level. (11) CKD (chronic kidney disease), stage III Is this a current diagnosis for this admission?: YesSummary: BUN/creatinine at baseline (12) Oxygen dependent Is this a current diagnosis for this admission?: YesSummary: Continue home oxygen (13) Acute respiratory failure with hypoxemia Is this a current diagnosis for this admission?: Yes - Additional Information Resuscitation Status: Full Code Discharge Diet: Cardiac, Diabetic Discharge Activity: Activity As Tolerated, Balance Activity w/Rest, Energy Conservation, Weigh Daily Home Medications: Aclidinium Erieville [Tudorza Pressair] 400 mcg IH BID 10/22/16 Aspirin [Aspirin EC] 81 mg PO DAILY 10/22/16 Atorvastatin Calcium [Lipitor 40 mg Tablet] 40 mg PO QHS 10/22/16 Bumetanide [Bumex 1 mg Tablet] 1 tab PO BID 10/22/16 Colchicine [Colcrys 0.6 mg Tablet] 0.6 mg PO DAILY 10/22/16 Febuxostat [Uloric 40 mg Tablet] 40 mg PO DAILY 10/22/16 Ipratropium/Albuterol Sulfate [Duoneb 3 ml Ampul] 3 ml NEB QIDP PRN 10/22/16 Lisinopril [Prinivil 2.5 mg Tablet] 2.5 mg PO DAILY 10/22/16 Lubiprostone [Amitiza 24 Mcg Capsule] 24 mcg PO BID 10/22/16 Metolazone [Zaroxolyn 2.5 mg Tablet] 2.5 mg PO DAILYP PRN 10/22/16 Metoprolol Tartrate [Lopressor 25 mg Tablet] 25 mg PO BID 10/22/16 Nitroglycerin [Nitrostat] 0.4 mg SL Q5MP PRN 10/22/16 Omeprazole 20 mg PO DAILY 10/22/16 Potassium Chloride 20 meq PO DAILY 10/22/16 Ropinirole HCl 1 mg PO QHS 10/22/16 Sitagliptin Phosphate [Januvia 50 mg Tablet] 50 mg PO DAILY 10/22/16 Spironolactone [Aldactone 25 mg Tablet] 12.5 mg PO DAILY 10/22/16 Warfarin Sodium [Coumadin 1 mg Tablet] 1 mg PO DAILY 10/22/16 Warfarin Sodium [Coumadin] 6 mg PO DAILY 10/22/16 Acetaminophen [Tylenol 325 mg Tablet] 650 mg PO Q4HP PRN tablet 10/25/16 Aclidinium Erieville [Tudorza Pressair for Inh] 1 puff IH .PRN PRN 10/25/16 Aspirin [Ecotrin 81 mg EC Tablet] 81 mg PO DAILY tabec 10/25/16 Atorvastatin Calcium [Lipitor 40 mg Tablet] 40 mg PO QHS tablet 10/25/16 Bisoprolol Fumarate [Zebeta] 5 mg PO DAILY #10 tablet 10/25/16 Bumetanide [Bumex 1 mg Tablet] 1 mg PO BID tablet 10/25/16 Febuxostat [Uloric 40 mg Tablet] 40 mg PO QAM tablet 10/25/16 Flu Vacc [id number] 36Mos Up/Pf [Fluzone Adlt Quad [id number] Vac 0.5 ml Syr] 0.5 ml IM .AT DISCHARGE PRN disp.syrin 10/25/16 Levofloxacin [Levaquin 750 mg Tablet] 750 mg PO DAILY #5 tablet 10/25/16 Lubiprostone [Amitiza 24 Mcg Capsule] 24 mcg PO BID capsule 10/25/16 Prednisone [Deltasone 20 mg Tablet] 20 mg PO ASDIR PRN #6 tablet 10/25/16 Sitagliptin Phosphate [Januvia 50 mg Tablet] 50 mg PO DAILY tablet 10/25/16 Spironolactone [Aldactone 25 mg Tablet] 25 mg PO DAILY tablet 10/25/16 Warfarin Sodium [Coumadin 3 mg Tablet] 6 mg PO QHS tablet 10/25/16 History of Present Illness History of Present Illness: JUANY BOWLES is a 76 year old male with complex medical history including systolic CHF with an ejection fraction below 30% status post placement of an AICD and pacemaker, chronic kidney disease, COPD with a 4 L nasal cannula oxygen requirement, and a history of recurrent pleural effusions who presents with hypoxemia and respiratory distress. History is limited secondary to patient's distress level. However, the daughter and EMS provide a history of patient contacting the daughter stating he felt increasingly short of breath. When the daughter arrived patient was tachypneic and she checked a pulse oximeter and noted it to be 50%. She noticed that his oxygen tubing was kinked but even unkinking the tubing only increases oxygen saturation to 73%. On EMS arrival, patient was in severe respiratory distress with associated wheezing and poor air movement bilaterally. He was placed on CPAP with moderate improvement of his symptoms and transferred to the emergency department. Daughter does note that patient fell 2 days ago and hit his head but has not been acting any differently has not had any focal weakness, numbness or vomiting since that time. He is currently anticoagulated on Coumadin. Hospital Course Hospital Course: Patient was initially IMCU. On BiPAP. Overnight he was be able to be weaned off the BiPAP back to nasal cannula with adequate oxygenation levels. He was continued on IV steroids, broad-spectrum antibiotics and nebulizer treatments. Blood cultures 2 revealed no bacteremia. He is unable to produce sputum specimen. Breathing remarkably improved he was able to be weaned to 2 L/m by nasal cannula. He normally wears 4 L/per minute via nasal cannula home. Today he feels well he is no longer dyspneic with exertion or walking to the bathroom. He is ready for discharge. Physical Exam Vital Signs: Temp Pulse Resp BP Pulse Ox 97.7 F 53 L 18 115/61 92 10/25/16 11:07 10/25/16 13:14 10/25/16 13:14 10/25/16 11:07 10/25/16 11:07 Intake & Output 10/24/16 10/25/16 10/26/16 06:59 06:59 06:59 Intake Total 1680 1816 681 Output Total 350 1800 200 Balance 1330 16 481 Weight 121.7 kg 119.6 kg General appearance: PRESENT: no acute distress, well-developed, well-nourished Head exam: PRESENT: atraumatic, normocephalic Eye exam: PRESENT: conjunctiva pink, EOMI, PERRLA. ABSENT: scleral icterus Ear exam: PRESENT: normal external ear exam Mouth exam: PRESENT: moist, tongue midline Neck exam: ABSENT: carotid bruit, JVD, lymphadenopathy, thyromegaly Respiratory exam: PRESENT: clear to auscultation cole. ABSENT: rales, rhonchi, wheezes Cardiovascular exam: PRESENT: RRR. ABSENT: diastolic murmur, rubs, systolic murmur Pulses: PRESENT: normal dorsalis pedis pul Vascular exam: PRESENT: normal capillary refill GI/Abdominal exam: PRESENT: normal bowel sounds, soft. ABSENT: distended, guarding, mass, organolmegaly, rebound, tenderness Rectal exam: PRESENT: deferred Extremities exam: PRESENT: full ROM. ABSENT: calf tenderness, clubbing, pedal edema Neurological exam: PRESENT: alert, awake, oriented to person, oriented to place , oriented to time, oriented to situation, CN II-XII grossly intact. ABSENT: motor sensory deficit Psychiatric exam: PRESENT: appropriate affect, normal mood. ABSENT: homicidal ideation, suicidal ideation Skin exam: PRESENT: dry, intact, warm. ABSENT: cyanosis, rash Results Laboratory Results: 10/24/16 04:02 10/24/16 04:02 10/22/16 04:58 Troponin I 0.017 Impressions: Head CT 10/21/16 21:35 IMPRESSION: NORMAL BRAIN CT WITHOUT CONTRAST. Chest X-Ray 10/22/16 00:00 IMPRESSION: Trace FREE FLOWING LEFT PLEURAL EFFUSION. Probable bulla or bleb at the inferior right lung base Cardiomegaly with pulmonary vascular congestion, suspect left perihilar pulmonary edema Qualifiers PATEINT BEING DISCHARGED WITH ANY OF THE FOLLOWING DIAGNOSIS?: No Plan Discharge Plan: Discharge home with resumption of home health services. Time Spent: Less than 30 Minutes
== END 2016-10-25 15:02 | disposition home or self-care (01) | DRG 190 ==
LOC: ER 21:17 → UNDOADMIN 10-22 00:16 → EH 10-22 00:16 → 3N 10-22 03:02 → EH 10-22 03:02 → 3N 10-22 04:25
PROVIDERS: ADMIT Family Medicine; ATTEND Family Medicine
PROC: 5A09357 Assistance with Respiratory Ventilation, Less than 24 Consecutive Hours, Continuous Positive Airway Pressure (ICD-10-PCS; principal; 2016-10-21)
PROC: 3E0F73Z Introduction of Anti-inflammatory into Respiratory Tract, Via Natural or Artificial Opening (ICD-10-PCS; 2016-10-22)
PROC: 3E0234Z Introduction of Serum, Toxoid and Vaccine into Muscle, Percutaneous Approach (ICD-10-PCS; 2016-10-25)
DX: J44.1 Chronic obstructive pulmonary disease with (acute) exacerbation (principal); J96.01 Acute respiratory failure with hypoxia; I13.0 Hypertensive heart and chronic kidney disease with heart failure and stage 1 through stage 4 chronic kidney disease, or unspecified chronic kidney disease; I44.7 Left bundle-branch block, unspecified; E66.9 Obesity, unspecified; Z68.35 Body mass index [BMI] 35.0-35.9, adult; N18.3 Chronic kidney disease, stage 3 (moderate); I25.10 Atherosclerotic heart disease of native coronary artery without angina pectoris; I50.9 Heart failure, unspecified; I25.2 Old myocardial infarction; M19.90 Unspecified osteoarthritis, unspecified site; K21.9 Gastro-esophageal reflux disease without esophagitis; E11.22 Type 2 diabetes mellitus with diabetic chronic kidney disease; Z95.1 Presence of aortocoronary bypass graft; Z85.828 Personal history of other malignant neoplasm of skin; Z95.810 Presence of automatic (implantable) cardiac defibrillator; Z23 Encounter for immunization; Z79.01 Long term (current) use of anticoagulants; Z86.718 Personal history of other venous thrombosis and embolism; Z99.81 Dependence on supplemental oxygen; Z79.899 Other long term (current) drug therapy; Z87.891 Personal history of nicotine dependence; Z79.82 Long term (current) use of aspirin; Z88.6 Allergy status to analgesic agent; Z88.2 Allergy status to sulfonamides; Z88.0 Allergy status to penicillin
CPT/HCPCS: 36415; 36600; 70450; 71010; 71035; 80048; 80053; 82550; 82553; 82803; 82962; 83880; 84484; 85025; 85610; 85730; 87040; 93005; 93010; 94640; 94660; 94799; 96365; 96375; 99291; J1815; J1956; J2930; J3475; J3490; J7512; J7620

== ENCOUNTER 2017-05-24 20:31 | Emergency (ER) | payer MEDICARE, OTHER ==
[~2017-05-24 20:31] MED LIST: ADENOSINE INJ/PF 6 MG/2 ML SDV IV ONE; AMIODARONE HCL INJ 150 MG/3 ML VIAL IV ONE; EPINEPHRINE INJ 1 MG/10 ML DISP.SYRIN ONE
[2017-05-24] MEDS ORDERED: ESMOLOL HCL INJ/PF 100 MG/10 ML SDV IV ONE ×2 (20:40→22:15)
--- NOTE | 2017-05-24 21:21 | ER Document Report ---
ED General - General Chief Complaint: Cardiac Arrest Stated Complaint: POSSIBLE POST ARREST Time Seen by Provider: 05/24/17 21:15 Mode of Arrival: Medic Information source: Relative, Emergency Med Personnel Cannot obtain history due to: Intubated - Patient in cardiac arrest Notes: This is a 77-year-old man brought into the emergency room and cardiac arrest. Patient was at the [facility] when he started getting short of breath. He had collapsed in the bathroom there. EMS arrived on the scene and they state he had a cardiac arrest at 8 PM. He was given a total of 6 epis, 6 defibrillations, bicarb 1, lidocaine 3, calcium 1 in the field by EMS. EMS is placed a left IO and a Javi tube airway. He was also given a liter of fluid in the field. Patient presents to the ER with CPR in progress. - HPI Patient complains to provider of: This history is per family Onset: Just prior to arrival Onset/Duration: Gradual Quality of pain: No pain Severity: None Pain Level: Denies Associated symptoms: Shortness of breath Exacerbated by: Movement Relieved by: Denies Similar symptoms previously: Yes Recently seen / treated by doctor: No Past Medical History - General Information source: Relative Cannot obtain history due to: Other - Patient in cardiac arrest - Social History Smoking Status: Unknown if Ever Smoked Cigarette use (# per day): No Chew tobacco use (# tins/day): No Smoking Education Provided: No Frequency of alcohol use: None Drug Abuse: None Lives with: Family Family History: None - Past Medical History Cardiac Medical History: Reports: Hx Congestive Heart Failure Surgical Hx: Other - Unable to obtain Review of Systems - Review of Systems -: Yes ROS unobtainable due to patient's medical condition - Patient in cardiac arrest: See history. Physical Exam - Vital signs Notes: Physical exam: GENERAL: 77-year-old man, unresponsive, and cardiac arrest, with a Javi tube airway, CPR in progress. HEAD: Atraumatic, normocephalic. EYES: Pinpoint and nonreactive ENT: Moist mucous membranes. NECK: No obvious masses LUNGS: Bilateral breath sounds with ventilations HEART: Asystolic, CPR in progress ABDOMEN: Soft and distended EXTREMITIES: Normal range of motion, no pitting or edema. No clubbing or cyanosis. NEUROLOGICAL: Unresponsive SKIN: Warm, Dry, normal turgor, no rashes or lesions noted. Course - Re-evaluation Re-evalutation: CPR started by EMS at 8 PM. Patient arrived at 8:30 PM with CPR in progress. 05/24/17 21:19 Patient shocked multiple times for refractory V. fib. Bedside echo shows asystole. The patient was given amiodarone IV, IV fluids, IV esmolol (500 mg/kg ) load followed by simultaneous defibrillations good yourself 2 PADS. CPR was continued. I have spoken to the family and allowed them to be at the bedside. At 9:07 PM, the patient was pronounced after repeat bedside echo showed asystole. CPR discontinued. 05/25/17 01:04 - Laboratory Laboratory results interpreted by me: 05/24/17 20:37 POC Glucose 117 H Procedures - Intubation Orotracheal Airway evaluation: Normal anatomy Mallampati Classification: Class 2 Intubation method: Orotracheal Blade size: 3 Equipment used: Glidescope ETT size: 7.5 ETT secured at: Teeth ETT secured at (cm): 25 Breath Sounds after Intubation: Equal End tidal CO2 confirmed: Yes Post Intubation Xray: No Intubation Complications: No complications - Additional Procedures cpr Time performed: 20:00 Notes: 05/25/17 01:08 CPRon arrival till 21:07 pm Critical Care Note - Critical Care Note Total time excluding time spent on procedures (mins): 40 Discharge - Discharge Clinical Impression: Cardiac arrest Disposition:
[2017-05-24] MEDS ORDERED: AMIODARONE HCL INJ 150 MG/3 ML VIAL IV ONE (22:15)
== END 2017-05-25 | disposition expired ==
LOC: ER 20:31 → MERGE 20:31 → ER 05-25
DX: I49.01 Ventricular fibrillation (principal); I46.9 Cardiac arrest, cause unspecified; R06.02 Shortness of breath; Z86.79 Personal history of other diseases of the circulatory system
CPT/HCPCS: 99291; 92950; 82962; 31500; J0171; J0153; J0282